=== PATIENT | male | born 1935 | race Caucasian/White ===

== ENCOUNTER 2022-02-10 09:37 | Day surgery (SDC) | payer MEDICARE, SELFPAY ==
[2022-02-10 10:11] VITALS: BP 157/69; PULSE 62; RESP 16; TEMP 36.5; O2SAT 100
[2022-02-10] MEDS: Tropicam./Phenyleph. (1/2.5%) 5 ML BTL OD ×3 (10:21→10:37)
--- NOTE | 2022-02-10 10:43 | W.ANESPRE ---
General Info Date of Service Date Performed: 02/10/22 Height: 5 ft 7 in Weight: 66.7 kg Body Mass Index (BMI): 23.0 Surgical Procedure: Operation Date: 02/10/22 12:40 Proposed Procedure Side Surgeon p Cataract Extraction with IOL Implant Right Alirio Caballero MD Meds Allergies and Home Medications Allergies Allergy/AdvReac Type Severity Reaction Status Date / Time Penicillins Allergy Intermediate Hives Unverified 02/10/22 10:07 Home Medication Medication Instructions Recorded ascorbic acid (vitamin C) 1,000 mg 1,000 mg PO DAILY 02/06/22 tablet beta carotene 30 mg capsule 75 mg PO DAILY 02/06/22 calcium carb 333 mg-vit D3 133 1 tab PO DAILY 02/06/22 unit-mag ox 133 mg-zinc oxide 5 mg tab (Justin Mag Zinc Plus D3) ginseng 1,000 mg tablet 1,000 mg PO DAILY 02/06/22 lecithin 1,200 mg capsule 1,200 mg PO DAILY 02/06/22 potassium 99 mg tablet 99 mg PO DAILY 02/07/22 Current Visit Medications: Current Medications Generic Name Dose Route Start Last Admin Trade Name Freq PRN Reason Stop Dose Admin Acetaminophen 1,000 mg 02/10/22 06:00 Acetaminophen 500 Mg Tab PO Q4H PRN PRN Miscellaneous Medication 0 ml 02/10/22 06:00 Prednisolone 1%, Moxifloxacin 0.5%, Nepafenac 0.1% 5ml Btl OD DIRECTED [facility] Miscellaneous Medication 0 ml 02/10/22 06:00 02/10/22 10:37 Tropicam./Phenyleph. (1/2.5%) 5 Ml Btl OD 1 drp DIRECTED [facility]ARA Administration Tetracaine HCl 0 ml 02/10/22 06:00 Tetracaine 0.5% 4 Ml Btl OD DIRECTED [facility] PFSH Medical History Medical History (Updated 02/10/22 @ 10:55 by Alirio Caballero MD) Cataract Hx of fracture of patella Hx of fracture of tibia Systolic murmur Surgical History Surgical History Hx of appendectomy Tobacco Smoking/Tobacco Use Status: Never Alcohol Alcohol Intake: current Alcohol intake frequency: a few times a month Alcohol type: beer Substance Use Substance use: Never Substance use type: does not use Vital Signs and Lab Results Vital Signs Most Recent Vital Signs in EMR: Most Recent Vital Signs Temp Pulse Resp BP Pulse Ox 36.5 C 62 16 157/69 H 100 02/10/22 10:11 02/10/22 10:11 02/10/22 10:11 02/10/22 10:11 02/10/22 10:11 Lab Results Blood Type / Crossmatch: No Data to Display Complete Blood Count: No Data to Display Complete Metabolic Panel: No Data to Display Liver Function Panel: No Data to Display Coagulation Panel: No Data to Display Cardiac Panel: No Data to Display Arterial Blood Gas: No Data to Display Venous Blood Gas: No Data to Display Pancreas Panel: No Data to Display Thyroid Panel: No Data to Display Infectious Disease: No Data to Display Blood Cultures: No Data to Display Toxicology Panel: No Data to Display Anesthesia Assessment and Plan Anesthesia History Personal History: No History of Anesthesia Complications Family History: No Family History of Anesthesia Complications Exercise Tolerance Exercise Tolerance: Metabolic Equivalents>4 Pertinent Negatives Pertinent Negatives: No Symptoms of GERD Cardiac & Pulmonary Exam Cardiac Exam: Normal S1/S2 Heart Sounds Pulmonary Exam: Clear Bilateral Breath Sounds Implantable Cardiac Device Does patient have a Pacemaker or an ICD?: No Airway Exam Known Difficult Airway: No Mallampati Class: 1 Mouth Opening: Normal (> 3cm) Thyromental Distance: Greater than 3 cm Neck Range of Motion: Full ROM Neck Circumference: Normal Teeth Condition: Removable Dentures/Plates Upper and Removable Dentures/Plates Lower ASA Classification ASA Score: ASA 3 Emergency Case?: No NPO Status NPO Status: NPO Clears >2 hours, Solids >8 hours Anesthesia Plan Resuscitation Status: Full Code Anesthesia Technique: MAC Anesthesia Airway Planned: Natural Airway Monitors Used: Standard Monitors
[2022-02-10 10:44] VITALS: BMI 23.0
[2022-02-10] MEDS: Tetracaine 0.5% 4 ML BTL OD (11:04)
[2022-02-10] MEDS: Lidocaine 2% Jelly 6 ML SYR (11:04)
[2022-02-10] MEDS: Povidone-Iodine Ophth 30 ML BTL (11:06)
[2022-02-10] MEDS: Balanced Salt Soln.-PLUS 500 ML BAG (11:12)
[2022-02-10 11:29] VITALS: BP 159/72; PULSE 64; RESP 16; TEMP 36.7; O2SAT 99
--- NOTE | 2022-02-10 11:30 | W.PM.DSUDISC ---
Discharge Plan Disposition Patient Disposition: HOME Condition: Good Discharge Details Attending Provider: Alirio Caballero Primary Care Provider: KIM HONG Home Meds and New Rx's Prescriptions: No Action ascorbic acid (vitamin C) 1,000 mg Tablet 1,000 mg PO DAILY lecithin 1,200 mg Capsule 1,200 mg PO DAILY beta carotene 30 mg Capsule 75 mg PO DAILY ginseng 1,000 mg Tablet 1,000 mg PO DAILY Justin Mag Zinc Plus D3 333 mg-133 unit -133 mg-5 mg Tablet 1 tab PO DAILY potassium 99 mg Tablet 99 mg PO DAILY Discharge Instructions Stand Alone Forms: Post-op Topical Cataract, Leonela Szymanski (DSU) Discharge Orders Discharge Orders: Discharge Order (Routine); Ordered 02/10/22 Ordered By: Alirio Caballero DS: Diagnosis Discharge Diagnosis (1) Posterior subcapsular age-related cataract, right eye: Status: Resolved (2) Nuclear sclerotic cataract of right eye: Status: Resolved (3) Cortical cataract of right eye: Status: Resolved
--- NOTE | 2022-02-10 11:32 | ROE_ITS ---
Date of service: 02/10/22 Time of Service: 11:32 Operative Note Operative Note DATE OF PROCEDURE: 02/10/22 PRE-OP DIAGNOSIS: Nuclear/cortical/posterior subcapsular cataract, right eye POST-OP DIAGNOSIS: same PROCEDURE: Cataract extraction using phacoemulsification with intraocular lens implant, right eye SURGEON: Alirio Caballero ANESTHESIA TYPE: Local By Surgeon and MAC Refer to Anesthesia Record ESTIMATED BLOOD LOSS: 0 PATHOLOGY: none sent COMPLICATIONS: None Patient was transported to: same day Patient's condition: stable Implants: Tio & Tio/[employer] Tecnis [id number] Indications: Progressive visual loss due to cataract, right eye Procedure Description: CATARACT SURGERY OPERATIVE REPORT PREOPERATIVE DIAGNOSIS: 1. Nuclear/cortical/posterior subcapsular cataract, right eye POSTOPERATIVE DIAGNOSIS: Same OPERATION: 1. Cataract extraction using phacoemulsification with posterior chamber intraocular lens implant, right eye. IOL: IOL Vp Delivery/Model: Tio & Tio / [employer] Tecnis [id number] IOL Power: + 21.0 diopters IOL Serial Number: [id number] Optic Diameter: 6.0mm Haptic/Overall Diameter: 13.0mm PHACO INFO: Da Knee Creationsurion Vision System with OZil and Active Fluidics Cumulative Dispersed Energy (CDE): 13.68 seconds SURGEON: Alirio Caballero MD, KERRY ANESTHESIA: Monitored Anesthesia Care (MAC), with local sub-tenon's anesthetic infiltration COMPLICATIONS: None SPECIMENS: None INDICATIONS FOR PROCEDURE: The patient is an 86-year-old gentleman with history of diminished visual acuity in his right eye secondary to the development of significant nuclear/cortical/posterior subcapsular cataract. The option of cataract surgery was offered to the patient and he felt he was symptomatic enough that he wished to proceed. PROCEDURE: The correct surgical eye was identified and marked as the right eye and the pupil was dilated in the preoperative area using mydriatics and cycloplegics. The dilated pupil size was 7.0 mm. The patient elected to proceed without oral sedation. The patient was brought to the operating room where cardiopulmonary monitoring was instituted and surgical time-out was performed, confirming the correct operative eye and IOL power. Topical anesthesia was administered and ophthalmic povidone-iodine 5% was instilled into the conjunctival fornices. Lidocaine gel was applied to the cornea and the krys-ocular area was prepped with Betadine 10% solution and draped in the usual sterile fashion for intraocular surgery, including an aperture drape. A Tegaderm transparent film dressing was cut in half and used to cover the lashes and lid margins. Care was taken to sequester the lashes and lid margins under the Tegaderm dressing. A lid speculum was placed between the lids of the operative eye and the Da [employer] Rev[employer] operating microscope was maneuvered into position. Micha scissors were then used to make a conjunctival buttonhole approximately 6mm posterior to the limbus in the inferonasal quadrant. Blunt dissection was carried out to expose bare sclera, and a blunt-tipped sub-tenon?s anesthesia cannula was introduced and passed posteriorly along the globe where non- preserved plain lidocaine was injected into posterior sub-Tenon?s space. A sideport knife was used to make a paracentesis port inferotemporally. Intraocular phenylephrine/lidocaine was injected into the anterior chamber. The anterior chamber was filled with viscoelastic. A keratome knife was used to construct a 2-plane near-clear corneal tunnel extending 2.0mm into clear cornea superiortemporally. A flap was raised on the anterior capsule and capsulorhexis forceps were used to complete a continuous curvilinear capsulorhexis of 5.0 mm. Balanced salt solution was then used to perform cortical cleaving hydrodissection and nuclear hydrodelineation until the lens could be freely rotated within the capsular bag. The lens nucleus was then disassembled and removed within the capsular bag and iris plane using phacoemulsification. Residual cortical material was removed using the I/A handpiece. The posterior capsule was carefully polished to remove as much residual lens epithelial cells as safely possible. The capsular bag was then inflated and the anterior chamber deepened with viscoelastic. The lens implant described above was inserted into the capsular bag using the [employer] [place] Injector. A Kuglen hook was used to dial the IOL into position. Residual viscoelastic was then removed first from posterior to the IOL, then from the anterior chamber using the I/A handpiece. The lens implant was noted to center nicely within the capsular bag. The incisions were stromally hydrated, and the anterior chamber was reformed using BSS. Then 0.5cc of moxifloxacin 1.0mg/ml were injected into the capsular bag and anterior chamber. The incisions were checked with a Weck spear and found to be secure. Several drops of ophthalmic povidone-iodine 5% were then applied to the eye followed by two drops of Imprimis combination prednisolone/moxifloxacin/nepafenac solution. The drapes were removed and a clear plastic protective eye shield was placed over the eye. The patient was then returned to Same Day Surgery in stable condition.
--- NOTE | 2022-02-10 12:09 | W.ANESPOSTOP ---
Postoperative Evaluation Date, Time and Location Date Performed: 02/10/22 Time Performed: 11:35 Patient Location: Day Surgery Unit Vital Signs Most Recent Imported Vital Signs: Most Recent Vital Signs Temp Pulse Resp BP Pulse Ox 36.7 C 64 16 159/72 H 99 02/10/22 11:29 02/10/22 11:29 02/10/22 11:29 02/10/22 11:29 02/10/22 11:29 Pain Score Most Recent Pain Score: Most Recent Pain Score Pain Level 0 02/10/22 11:29 Assessment Mental Status: Awake (Alert & Oriented to Patient Baseline) Airway and Respiratory Function: Patent airway with normal (patient baseline) respiratory exam Cardiovascular Function: Hemodynamically Stable Hydration Status: Adequately Hydrated Nausea & Vomiting: No Nausea or Vomiting Pain: Pt. Denies Any Pain Peripheral Nerve Block: Patient did not receive a nerve block
== END 2022-02-10 11:53 | disposition home or self-care (01) ==
PROVIDERS: PCP Nurse Practitioner Family; Visit Provider Ophthalmology
PROC: (CPT 66984; principal; 2022-02-10 12:30)
DX: H25.041 Posterior subcapsular polar age-related cataract, right eye (principal)
CPT/HCPCS: 66984; V2632

== ENCOUNTER 2022-02-24 09:39 | Day surgery (SDC) | payer MEDICARE, SELFPAY ==
[2022-02-24 09:55] VITALS: BP 169/76; PULSE 57; RESP 16; TEMP 36.6; O2SAT 99
[2022-02-24] MEDS: Tropicam./Phenyleph. (1/2.5%) 5 ML BTL OS ×3 (10:13→10:23)
--- NOTE | 2022-02-24 10:48 | W.ANESPRE ---
General Info Date of Service Date Performed: 02/24/22 Height: 5 ft 6 in Weight: 66.5 kg Body Mass Index (BMI): 23.6 Surgical Procedure: Operation Date: 02/24/22 12:40 Proposed Procedure Side Surgeon p Cataract Extraction with IOL Implant Left Alirio Caballero MD Meds Allergies and Home Medications Allergies Allergy/AdvReac Type Severity Reaction Status Date / Time Penicillins Allergy Intermediate Hives Verified 02/24/22 09:53 Home Medication Medication Instructions Recorded ascorbic acid (vitamin C) 1,000 mg 1,000 mg PO DAILY 02/06/22 tablet beta carotene 30 mg capsule 75 mg PO DAILY 02/06/22 calcium carb 333 mg-vit D3 133 1 tab PO DAILY 02/06/22 unit-mag ox 133 mg-zinc oxide 5 mg tab (Justin Mag Zinc Plus D3) ginseng 1,000 mg tablet 1,000 mg PO DAILY 02/06/22 lecithin 1,200 mg capsule 1,200 mg PO DAILY 02/06/22 potassium 99 mg tablet 99 mg PO DAILY 02/07/22 Current Visit Medications: Current Medications Generic Name Dose Route Start Last Admin Trade Name Freq PRN Reason Stop Dose Admin Acetaminophen 1,000 mg 02/24/22 06:00 Acetaminophen 500 Mg Tab PO Q4H PRN PRN Miscellaneous Medication 0 ml 02/24/22 06:00 Prednisolone 1%, Moxifloxacin 0.5%, Nepafenac 0.1% 5ml Btl OS DIRECTED [facility] Miscellaneous Medication 0 ml 02/24/22 06:00 02/24/22 10:23 Tropicam./Phenyleph. (1/2.5%) 5 Ml Btl OS 1 drp DIRECTED [facility] Administration Tetracaine HCl 0 ml 02/24/22 06:00 Tetracaine 0.5% 4 Ml Btl OS DIRECTED [facility] PFSH Active Problems Active Problems: Problem Status Onset Code Posterior subcapsular age-related cataract, right eye H25.041 Nuclear sclerotic cataract of right eye H25.11 Cortical cataract of right eye H26.9 Medical History Medical History Cataract Hx of fracture of patella Hx of fracture of tibia Systolic murmur Surgical History Surgical History Hx of appendectomy Tobacco Smoking/Tobacco Use Status: Never Alcohol Alcohol Intake: current Alcohol intake frequency: a few times a month Alcohol type: beer Substance Use Substance use: Never Substance use type: does not use Vital Signs and Lab Results Vital Signs Most Recent Vital Signs in EMR: Most Recent Vital Signs Temp Pulse Resp BP Pulse Ox 36.6 C 57 L 16 169/76 H 99 02/24/22 09:55 02/24/22 09:55 02/24/22 09:55 02/24/22 09:55 02/24/22 09:55 Lab Results Blood Type / Crossmatch: No Data to Display Complete Blood Count: No Data to Display Complete Metabolic Panel: No Data to Display Liver Function Panel: No Data to Display Coagulation Panel: No Data to Display Cardiac Panel: No Data to Display Arterial Blood Gas: No Data to Display Venous Blood Gas: No Data to Display Pancreas Panel: No Data to Display Thyroid Panel: No Data to Display Infectious Disease: No Data to Display Blood Cultures: No Data to Display Toxicology Panel: No Data to Display Anesthesia Assessment and Plan Anesthesia History Personal History: No History of Anesthesia Complications Family History: No Family History of Anesthesia Complications Exercise Tolerance Exercise Tolerance: Metabolic Equivalents>4 Cardiac & Pulmonary Exam Cardiac Exam: Heart Murmur Present Pulmonary Exam: Clear Bilateral Breath Sounds Implantable Cardiac Device Does patient have a Pacemaker or an ICD?: No Airway Exam Known Difficult Airway: No Mallampati Class: 1 Mouth Opening: Normal (> 3cm) Thyromental Distance: Greater than 3 cm Neck Range of Motion: Full ROM Neck Circumference: Normal Teeth Condition: Removable Dentures/Plates Upper and Removable Dentures/Plates Lower ASA Classification ASA Score: ASA 3 Emergency Case?: No NPO Status NPO Status: NPO Clears >2 hours, Solids >8 hours Anesthesia Plan Resuscitation Status: Full Code Anesthesia Technique: MAC Anesthesia Airway Planned: Natural Airway Monitors Used: Standard Monitors
[2022-02-24 11:49] VITALS: BMI 23.6
[2022-02-24] MEDS: Tetracaine 0.5% 4 ML BTL OS (12:03)
[2022-02-24] MEDS: Balanced Salt Soln.-PLUS 500 ML BAG (12:03)
[2022-02-24] MEDS: Lidocaine 2% Jelly 6 ML SYR (12:05)
[2022-02-24] MEDS: Povidone-Iodine Ophth 30 ML BTL (12:06)
[2022-02-24 12:17] VITALS: BP 158/75; PULSE 60; RESP 16; TEMP 36.1; O2SAT 100
--- NOTE | 2022-02-24 12:17 | W.PM.DSUDISC ---
Discharge Plan Disposition Patient Disposition: HOME Condition: Good Discharge Details Attending Provider: Alirio Caballero Primary Care Provider: KIM HONG Home Meds and New Rx's Prescriptions: No Action ascorbic acid (vitamin C) 1,000 mg Tablet 1,000 mg PO DAILY lecithin 1,200 mg Capsule 1,200 mg PO DAILY beta carotene 30 mg Capsule 75 mg PO DAILY ginseng 1,000 mg Tablet 1,000 mg PO DAILY Justin Mag Zinc Plus D3 333 mg-133 unit -133 mg-5 mg Tablet 1 tab PO DAILY potassium 99 mg Tablet 99 mg PO DAILY Discharge Instructions Stand Alone Forms: Post-op Topical Cataract, Leonela Szymanski ([facility]U) Discharge Orders Discharge Orders: Discharge Order (Routine); Ordered 02/24/22 Ordered By: Alirio Caballero DS: Diagnosis Discharge Diagnosis (1) Nuclear sclerotic cataract of left eye: Status: Resolved (2) Posterior subcapsular age-related cataract of left eye: Status: Resolved
--- NOTE | 2022-02-24 12:18 | W.PM.OP ---
Date of service: 02/24/22 Time of Service: 12:19 Operative Note Operative Note DATE OF PROCEDURE: 02/24/22 PRE-OP DIAGNOSIS: Nuclear/posterior subcapsular cataract, left eye POST-OP DIAGNOSIS: same PROCEDURE: Cataract extraction using phacoemulsification with intraocular lens implant, left eye SURGEON: Alirio Caballero ANESTHESIA TYPE: Local By Surgeon and MAC Refer to Anesthesia Record PATHOLOGY: none sent COMPLICATIONS: None Patient was transported to: same day Patient's condition: stable Implants: Tio and Tio / [employer] Tecnis [id number] Indications: Progressive decreased vision due to cataract, left eye Procedure Description: CATARACT SURGERY OPERATIVE REPORT PREOPERATIVE DIAGNOSIS: 1. Nuclear/posterior subcapsular cataract, left eye POSTOPERATIVE DIAGNOSIS: Same OPERATION: 1. Cataract extraction using phacoemulsification with posterior chamber intraocular lens implant, left eye. IOL: IOL Fashion Design Professor/Model: Tio & Tio / [employer] Tecnis [id number] IOL Power: + 20.5 diopters IOL Serial Number: [id number] Optic Diameter: 6.0 mm Haptic/Overall Diameter: 13.0 mm PHACO INFO: Da [employer] Solutionsurion Vision System with OZil and Active Fluidics Cumulative Dispersed Energy (CDE): 7.38 seconds SURGEON: Alirio Caballero MD, KERRY ANESTHESIA: Monitored A [facility] (MAC), with local sub-tenon's anesthetic infiltration COMPLICATIONS: None SPECIMENS: None INDICATIONS FOR PROCEDURE: The patient is a 86-year-old gentleman with history of diminished visual acuity in both eyes secondary to the development of bilateral nuclear/posterior subcapsular cataract. 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 He now presents for cataract surgery in the left eye. PROCEDURE: The correct surgical eye was identified and marked as the left eye and the pupil was dilated in the preoperative area using mydriatics and cycloplegics. The dilated pupil size was 7.0 mm. The patient elected to proceed without oral sedation. The patient was brought to the operating room where cardiopulmonary monitoring was instituted and surgical time-out was performed, confirming the correct operative eye and IOL power. Topical anesthesia was administered and ophthalmic povidone-iodine 5% was instilled into the conjunctival fornices. Lidocaine gel was applied to the cornea and the krys-ocular area was prepped with Betadine 10% solution and draped in the usual sterile fashion for intraocular surgery, including an aperture drape. A Tegaderm transparent film dressing was cut in half and used to cover the lashes and lid margins. Care was taken to sequester the lashes and lid margins under the Tegaderm dressing. A lid speculum was placed between the lids of the operative eye and the Da [employer] operating microscope was maneuvered into position. Micha scissors were then used to make a conjunctival buttonhole approximately 6mm posterior to the limbus in the inferonasal quadrant. Blunt dissection was carried out to expose bare sclera, and a blunt-tipped sub-tenon?s anesthesia cannula was introduced and passed posteriorly along the globe where non-preserved plain lidocaine was injected into posterior sub-Tenon?s space. A sideport knife was used to make a paracentesis port superiorly/superiortemporally. Intraocular phenylephrine/lidocaine was injected int the anterior chamber.. The anterior chamber was filled with viscoelastic. A keratome knife was used to construct a 2-plane near-clear corneal tunnel extending 2.0mm into clear cornea temporally. A flap was raised on the anterior capsule and capsulorhexis forceps were used to complete a continuous curvilinear capsulorhexis of 5.0 mm. Balanced salt solution was then used to perform cortical cleaving hydrodissection and nuclear hydrodelineation until the lens could be freely rotated within the capsular bag. The lens nucleus was then disassembled and removed within the capsular bag and iris plane using phacoemulsification. Residual cortical material was removed using the 45-degree angled silicone I/A tip with 0.3mm port. The posterior capsule was carefully polished to remove as much residual lens epithelial cells as safely possible. The capsular bag was then inflated and the anterior chamber deepened with viscoelastic. The lens implant described above was inserted into the capsular bag using the [employer] [place] Injector. A Kuglen hook was used to dial the IOL into position. Residual viscoelastic was then removed first from posterior to the IOL, then from the anterior chamber using the I/A handpiece. The lens implant was noted to center nicely within the capsular bag. The incisions were stromally hydrated, and the anterior chamber was reformed using BSS. Then 0.5cc of moxifloxacin 1.0mg/ml were injected into the capsular bag and anterior chamber. The incisions were checked with a Weck spear and found to be secure. Several drops of ophthalmic povidone-iodine 5% were then applied to the eye followed by two drops of Imprimis combination prednisolone/moxifloxacin/nepafenac solution. The drapes were removed and a clear plastic protective eye shield was placed over the eye. The patient was then returned to Same Day Surgery in stable condition.
--- NOTE | 2022-02-24 12:27 | W.ANESPOSTOP ---
Postoperative Evaluation Date, Time and Location Date Performed: 02/24/22 Time Performed: 12:28 Patient Location: Day Surgery Unit Vital Signs Most Recent Imported Vital Signs: Most Recent Vital Signs Temp Pulse Resp BP Pulse Ox 36.1 C L 60 16 158/75 H 100 02/24/22 12:17 02/24/22 12:17 02/24/22 12:17 02/24/22 12:17 02/24/22 12:17 Pain Score Most Recent Pain Score: Most Recent Pain Score Pain Level 0 02/24/22 12:17 Assessment Mental Status: Awake (Alert & Oriented to Patient Baseline) Airway and Respiratory Function: Patent airway with normal (patient baseline) respiratory exam Cardiovascular Function: Hemodynamically Stable Hydration Status: Adequately Hydrated Nausea & Vomiting: No Nausea or Vomiting Pain: Pt. Denies Any Pain Peripheral Nerve Block: Patient did not receive a nerve block
== END 2022-02-24 12:42 | disposition home or self-care (01) ==
LOC: SUR 09:40
PROVIDERS: PCP Nurse Practitioner Family; Visit Provider Ophthalmology
PROC: (CPT 66984; principal; 2022-02-24 12:30)
DX: H25.042 Posterior subcapsular polar age-related cataract, left eye (principal)
CPT/HCPCS: 66984; V2632